=== PATIENT | male | born 1995 | race Caucasian/White ===

== ENCOUNTER 2019-06-04 16:38 | Emergency (ER) | payer OTHER, SELFPAY ==
[2019-06-04 16:45] VITALS: BP 132/64; PULSE 98; RESP 20; TEMP 36.8; O2SAT 97
--- NOTE | 2019-06-04 17:06 | ED.GENADULT ---
HPI - General Adult General Chief complaint: Upper Respiratory Infection Stated complaint: Pain in center of chest area Source: patient and family Mode of arrival: ambulatory Limitations: no limitations History of Present Illness HPI narrative: Patient a 24-year-old male presents with some musculoskeletal chest pain reproducible with palpation as painful with movement and deep inspiration with no fever chills no shortness of breath no abdominal pain no nausea vomiting no diarrhea constipation. The patient took ibuprofen a couple of days ago but nothing currently. Onset (ago): day(s) Severity: mild Quality: dull Pain Consistency: intermittent Relieving factors: immobilization Exacerbating factors: cold therapy Associated symptoms: denies other symptoms Treatments prior to arrival: none Related Data Allergies Allergy/AdvReac Type Severity Reaction Status Date / Time No Known Allergies Allergy Unverified 11/19/16 03:04 Review of Systems Review of Systems: All systems reviewed & are unremarkable except as noted in HPI and below PMFSH Past Medical History Medical History Patient denies medical problems Social History Social History Gender identity (if verbalized by the patient): Male Exam Const: General: no acute distress and alert Orientation/consciousness: patient oriented x3 HENMT: Head: normal to inspection Eyes: Conjunctivae: conjunctivae normal Pupils: Equal, round and reactive pupils present Neck: Neck: normal visual inspection Chest: Chest palpation & inspection: normal inspection of the chest Resp: Effort & Inspection: normal respiratory effort Auscultation: clear to auscultation bilaterally Cardio: Rate: regular rate Rhythm: regular rhythm Other: GI: GI Palp: Yes Soft to palpation Back/Spine/Pelvis: Back: no CVA tenderness Neuro: General: patient oriented x3 Extrem: Other: Reproducible chest pain with palpation Psych: Mental Status: mental status grossly normal Critical Care Time Critical Care Time Critical Care Time: No Discharge Plan Discharge Clinical Impression: Acute costochondritis Patient Disposition: Home, Self-Care Condition: Stable Instructions: Antibiotic Form, Costochondritis (ED) Additional Instructions: take medicine as prescribed and follow-up with primary care physician if symptoms persist or worsen. Prescriptions: New naproxen 500 mg tablet 500 mg PO BID Qty: 14 RF: 0 Follow-up/Referrals: PHYSICIAN NOT ON STAFF,NONSTAFF [Primary Care Provider] - Time of Disposition: 17:11
[2019-06-04 17:14] VITALS: RESP 20
== END 2019-06-04 17:14 | disposition home or self-care (01) ==
PROVIDERS: Emergency Provider Emergency Medicine
DX: M94.0 Chondrocostal junction syndrome [Tietze] (principal)
CPT/HCPCS: 99283

== ENCOUNTER 2021-06-02 12:11 | Emergency (ER) | payer OTHER, SELFPAY ==
[2021-06-02 12:18] VITALS: BP 155/76; PULSE 115; RESP 24; TEMP 39.4; O2SAT 100
--- NOTE | 2021-06-02 14:08 | ED.URI ---
HPI - URI/Sore Throat General Chief Complaint: Upper Respiratory Infection Stated Complaint: Fever/Sore Throat Time Seen by Provider: 06/02/21 14:08 Source: patient and RN notes reviewed Mode of arrival: ambulatory Limitations: no limitations History of Present Illness HPI Narrative: 26-year-old male presented for complaint of sore throat, cough, sinus congestion, fever and chills worsening over the last 3 days. States last night he had difficulty sleeping due to sore throat pain from cough. He endorses recent Covid infection approximately 2 months ago, and first Covid shot 1 week ago. He denies sick contacts. He has not had a flu vaccine. He has been taking ibuprofen, last dose yesterday. He was seen in outside urgent care yesterday and was given prescription for a Z-Felipe and was told he had negative strep. Denies chest pain, shortness of breath, nausea, vomiting, diarrhea. MD elicited complaint: cough Related Data Home Medications Medication Instructions Recorded Confirmed azithromycin 250 mg PO DAILY 06/02/21 06/02/21 omeprazole 20 mg PO BID 06/02/21 06/02/21 Allergies Allergy/AdvReac Type Severity Reaction Status Date / Time No Known Allergies Allergy Unverified 06/02/21 13:35 Review of Systems Review of Systems: CONSTITUTIONAL: Endorses malaise, chills, sweats, fever EYES: Denies visual changes, redness, or discharge ENT: Reports rhinorrhea, congestion, sinus pain, sore throat CARDIOVASCULAR: Denies chest pain, palpitations, edema RESPIRATORY: Reports cough, post nasal drainage. Denies dyspnea GASTROINTESTINAL: Denies abdominal pain, nausea, vomiting, diarrhea SKIN: Denies rash or itching MUSCULOSKELETAL: Endorses myalgia NEUROLOGIC: Denies headache PMFSH Past Medical History Medical History (Updated 06/02/21 @ 14:23 by Ashley Gurrola APRN) Patient denies medical problems Social History Social History Gender identity (if verbalized by the patient): Male Exam Narrative: GENERAL: Ill-appearing, no acute distress. HEAD: Normocephalic EYES: conjunctivae clear ENT: Mucous membranes moist. TM pearly messer with light reflex bilaterally; no tragal tenderness. Oropharynx erythematous without lesions or exudate, no drooling, no hoarseness, no trismus, uvula midline. No tripod positioning, muffled voice, soft palate or pharyngeal wall bulging NECK: Supple. No lymphadenopathy CHEST: Clear to auscultation, breath sounds equal. No wheezing, rhonchi, rales, or stridor. No respiratory distress, speaks in full sentences. HEART: Regular rate and rhythm. No murmur heard. SKIN: Warm, dry, no rash. NEURO: Alert and oriented x3. PSYCH: Normal mood and affect Course Course Emergency Course: Patient is aware of diagnosis, understands and agrees to treatment plan. Anticipatory guidance given. Patient agrees to follow-up as directed and is aware of reasons to seek care at the emergency department. Portions of this record may have been created with voice recognition software Level of Care: Express Care Visit Vital Signs Vital signs: Vital Signs Temperature 102.9 F H 06/02/21 12:18 Pulse Rate 115 H 06/02/21 12:18 Respiratory Rate 24 H 06/02/21 12:18 Blood Pressure 155/76 H 06/02/21 12:18 Pulse Oximetry 100 06/02/21 12:18 Temperature 102.9 F H 06/02/21 12:18 Pulse Rate 115 H 06/02/21 12:18 Respiratory Rate 24 H 06/02/21 12:18 Blood Pressure 155/76 H 06/02/21 12:18 Pulse Oximetry 100 06/02/21 12:18 reviewed MDM - URI/Sore Throat MDM Narrative Medical decision making narrative: flu and strep neg, covid was positive, however he had first Covid vaccine approximately 1 week ago. He is continuing the azithromycin as prescribed from an outside urgent care. Lungs clear, no c/o sob/wheezing, will defer CXR at this time. Will prescribe prednisone and guaifenesin with codeine. He is appropriate for outpt treatment and is advised to
[2021-06-02 14:16] VITALS: TEMP 39.6
[2021-06-02] MEDS: ACETAMINOPHEN 500 MG TABLET 1000 MG PO (14:16)
[2021-06-02] MEDS: IBUPROFEN 400 MG TABLET 800 MG PO (14:16)
[2021-06-02 14:40] VITALS: TEMP 39.6
== END 2021-06-02 14:40 | disposition home or self-care (01) ==
PROVIDERS: Emergency Provider Nurse Practitioner Family
DX: J06.9 Acute upper respiratory infection, unspecified (principal); J02.9 Acute pharyngitis, unspecified; Z20.822 Contact with and (suspected) exposure to COVID-19
CPT/HCPCS: 87081; 87426; 87804; 87880; 99213; A9270; C9803; G0463